=== PATIENT | female | born 1945 | race Caucasian/White ===

== ENCOUNTER → 2016-11-08 | Outpatient (CLI) | payer OTHER ==
[~2016-11-08] MED LIST: AMLO-512 PO; ASPI81 PO; CHL25 PO; CHLO25TA16 PO; ERGO2000 PO; GLIM2 PO; LOSA50TA37 PO; METO-325 PO; SERT50TA12 PO; SIMV20 PO; SITA50 PO
== END | disposition home or self-care (01) ==
LOC: RADPV 13:14
PROVIDERS: ATTEND Legal Medicine
DX: M50.322 Other cervical disc degeneration at C5-C6 level (principal); M50.323 Other cervical disc degeneration at C6-C7 level; M47.892 Other spondylosis, cervical region; M47.894 Other spondylosis, thoracic region; M51.36 Other intervertebral disc degeneration, lumbar region; M43.16 Spondylolisthesis, lumbar region; M25.78 Osteophyte, vertebrae; M12.88 Other specific arthropathies, not elsewhere classified, other specified site
CPT/HCPCS: 72040; 72070; 72100

== ENCOUNTER → 2021-07-07 | Outpatient (CLI) | payer MEDICARE, OTHER ==
[~2021-07-07] MED LIST changes: +AMLO-258 PO; -AMLO-512 PO; +ASPI-1450 PO; -ASPI81 PO; -CHLO25TA16 PO; +CHLO25TA3 PO; +LOSA-382 PO; -LOSA50TA37 PO; -METO-325 PO; +METO-391 PO; +REGADENOSON 0.4 MG/5 ML PF SYRINGE IVP ONE; +SERT-158 PO; -SERT50TA12 PO; +SESTAMIBI TC99M/UD ISOTOPE 1 EA INJ INJ ONE; +SIMV-260 PO; -SIMV20 PO
[2021-07-07 09:36] VITALS: BP 135/77
[2021-07-07 09:42] VITALS: BP 144/79
== END | disposition home or self-care (01) ==
LOC: CARDMN 07:31
PROVIDERS: ATTEND Internal Medicine Cardiovascular Disease
DX: I08.1 Rheumatic disorders of both mitral and tricuspid valves (principal); I25.10 Atherosclerotic heart disease of native coronary artery without angina pectoris; R07.9 Chest pain, unspecified; I25.9 Chronic ischemic heart disease, unspecified
CPT/HCPCS: 78452; 93017; 93306; A9500; J2785